=== PATIENT | male | born 1950 | race Caucasian/White ===

== ENCOUNTER 2017-08-26 17:41 | Inpatient (IN) | payer OTHER, BC ==
[2017-08-26] MEDS: ASPIRIN 325 MG TAB PO (18:49)
[2017-08-26 19:53] LABS: ADD MAN DIFF? NO
[2017-08-26 19:54] LABS: WHITE BLOOD COUNT 8.6 10^3/ul (4.8-10.8)
[2017-08-26 19:54] LABS: BASOPHILS % 0.3 % (0.0-2.0); EOSINOPHILS # 0.2 10^3/ul (0.0-0.5); HEMATOCRIT 47.7 % (42.0-52.0); HEMOGLOBIN 16.1 g/dl (14.0-18.0); LYMPHOCYTES # 2.1 10^3/ul (0.8-2.9); LYMPHOCYTES % 24.4 % (15.0-51.0); MEAN CORPUSCULAR HGB CONC 33.8 g/dl (32.0-37.0); MEAN CORPUSCULAR VOLUME 91.7 fl (82.0-101.0); MEAN PLATELET VOLUME 9.4 fl (7.4-10.4); MONOCYTE # 0.8 10^3/ul (0.3-0.9); MONOCYTES % 9.3 % (0.0-11.0); NEUTROPHIL # 5.5 10^3/ul (1.6-7.5); NEUTROPHILS % 63.8 % (39.0-77.0); PLATELET COUNT 215 10^3/UL (140-415); RED CELL DISTRIBUTION WIDTH 12.2 % (11.5-14.5)
[2017-08-26 20:10] LABS: INR 0.96; PARTIAL THROMBOPLASTIN TIME 29.7 Sec (25.0-35.0); PROTIME 12.9 Sec (11.9-14.9)
[2017-08-26 20:15] LABS: ALANINE AMINOTRANSFERASE 55 IU/L (13-69); ALBUMIN 4.2 g/dl (3.3-4.9); ALBUMIN/GLOBULIN RATIO 1.07; ALKALINE PHOSPHATASE 76 IU/L (42-121); ANION GAP 15 (8-16); ASPARTATE AMINO TRANSFERASE 169 IU/L (15-46); BILIRUBIN,INDIRECT 0.6 mg/dl (0-1.1); BILIRUBIN,TOTAL 0.6 mg/dl (0.2-1.3); BLOOD UREA NITROGEN 26 mg/dl (7-20); CALCIUM 8.9 mg/dl (8.4-10.2); CARBON DIOXIDE 28 mmol/L (21-31); CHLORIDE 102 mmol/L (97-110); CREATINE KINASE 1050 IU/L (23-200); CREATININE 1.54 mg/dl (0.61-1.24); GLUCOSE 197 mg/dl (70-220); POTASSIUM 5.2 mmol/L (3.5-5.1); SODIUM 140 mmol/L (135-144); TOTAL PROTEIN 8.1 g/dl (6.1-8.1)
[2017-08-26 20:28] LABS: B-TYPE NATRIURETIC PEPTIDE 4920 PG/ML (0-125); CK INDEX 4.7
[2017-08-26] MEDS: NA POLYST SULFON 15 GM/60 ML BTL PO (21:49)
[2017-08-26] MEDS: CA CHLORIDE 10% 10 ML SYRINGE IV (21:49)
[2017-08-26] MEDS: NA BICARBONATE 8.4% 50 ML SYG IV (21:49)
[2017-08-26] MEDS ORDERED: ONDANSETRON 4 MG INJ IV (23:00)
[2017-08-26] MEDS ORDERED: ACETAMINOPHEN 325 MG TAB PO (23:00)
[2017-08-26] MEDS: ENOXAPARIN 80 MG/0.8 ML SYG SC ×2 (23:10→23:11)
[2017-08-27] MEDS: ATORVASTATIN 80 MG TAB PO (01:30)
[2017-08-27] MEDS ORDERED: NACL 0.9% 3 ML SYG IV (01:30)
[2017-08-27] MEDS ORDERED: MAGNESIUM HYDROXIDE 30ML CUP PO (01:30)
[2017-08-27] MEDS ORDERED: DOCUSATE SODIUM 100 MG CAP PO (01:30)
[2017-08-27] MEDS ORDERED: hydrALAzine 20 MG INJ IV (01:30)
[2017-08-27] MEDS ORDERED: NITROGLYCERIN (SL) 0.4 MG TAB SL (01:30)
[2017-08-27] MEDS ORDERED: morphine 2 MG INJ IV (01:30)
[2017-08-27] MEDS ORDERED: ONDANSETRON 4 MG INJ IV (01:30)
[2017-08-27] MEDS ORDERED: LORAZEPAM 2 MG INJ IV (01:30)
[2017-08-27] MEDS ORDERED: HYDROCODONE/APAP (5/325) TAB PO (01:30)
[2017-08-27] MEDS ORDERED: NA PHOSPHATE/BIPHOS 133 ML ENEMA PR (01:30)
[2017-08-27] MEDS ORDERED: ACETAMINOPHEN 325 MG TAB PO (01:30)
[2017-08-27] MEDS ORDERED: ALBUTEROL/IPRATROPIUM (NEB) 3 ML AMP HHN (01:30)
[2017-08-27] MEDS: SOD CHLORIDE 0.45% 1,000 ML IV (02:37)
[2017-08-27 02:44] LABS: CREATINE KINASE 670 IU/L (23-200)
[2017-08-27 02:48] LABS: INR 1.08; PROTIME 14.1 Sec (11.9-14.9); PT RATIO 1.1
[2017-08-27 02:49] LABS: PARTIAL THROMBOPLASTIN TIME 39.4 Sec (25.0-35.0)
[2017-08-27 02:58] LABS: CK INDEX 4.6
[2017-08-27] MEDS ORDERED: GLUCOSE GEL 15 GRAM TUBE PO ×2 (03:00)
[2017-08-27] MEDS ORDERED: GLUCAGON 1 MG INJ IM (03:00)
[2017-08-27] MEDS ORDERED: GLUCOSE GEL 15 GRAM TUBE BUCCAL (03:00)
[2017-08-27] MEDS ORDERED: DEXTROSE 50% 50 ML SYRINGE IV ×2 (03:00)
[2017-08-27 03:46] LABS: FREE T4 (FREE THYROXINE) 1.06 ng/dl (0.78-2.44)
[2017-08-27] MEDS: INSULIN ASPART [NOVOLOG] 3 ML PEN SC ×3 (05:04→12:47)
[2017-08-27] MEDS ORDERED: ATROPINE 1 MG/10 ML SYRINGE ×2 (07:00→14:24)
[2017-08-27] MEDS ORDERED: NA BICARBONATE 8.4% 50 ML SYG (07:00)
[2017-08-27] MEDS ORDERED: MAGNESIUM SULFATE 1 GM/100 ML D5W IVPB (07:00)
[2017-08-27] MEDS ORDERED: ETOMIDATE 20 MG INJ (07:00)
[2017-08-27] MEDS ORDERED: EPINEPHrine 0.1 MG/ML SYG ×5 (07:00→15:11)
[2017-08-27] MEDS ORDERED: SUCCINYLCHOLINE CHLORIDE 100 MG/5 ML SYG IV (07:00)
[2017-08-27 08:45] LABS: CREATINE KINASE 541 IU/L (23-200)
[2017-08-27 08:57] LABS: CK INDEX 4.1
[2017-08-27] MEDS: HEPARIN 5,000 UNIT/0.5 ML VIAL SC (09:00)
[2017-08-27] MEDS: ASPIRIN (EC) 325 MG TAB PO ×2 (10:00→12:52)
[2017-08-27] MEDS: METOPROLOL 50 MG TAB PO (10:19)
[2017-08-27] MEDS: METOPROLOL 25 MG TAB PO (10:20)
[2017-08-27] MEDS ORDERED: HEPARIN 25000 UNITS/250 ML 250 ML IV ×2 (11:00→14:00)
[2017-08-27 12:15] LABS: ADD MAN DIFF? NO
[2017-08-27 12:22] LABS: BASOPHILS % 0.2 % (0.0-2.0); EOSINOPHILS % 0.5 % (0.0-7.0); HEMATOCRIT 47.6 % (42.0-52.0); HEMOGLOBIN 15.9 g/dl (14.0-18.0); LYMPHOCYTES % 23.9 % (15.0-51.0); MEAN CORPUSCULAR HEMOGLOBIN 30.6 pg (29.0-33.0); MEAN CORPUSCULAR HGB CONC 33.4 g/dl (32.0-37.0); MEAN CORPUSCULAR VOLUME 91.5 fl (82.0-101.0); MEAN PLATELET VOLUME 9.9 fl (7.4-10.4); MONOCYTE # 1.1 10^3/ul (0.3-0.9); MONOCYTES % 13.1 % (0.0-11.0); NEUTROPHIL # 5.3 10^3/ul (1.6-7.5); NEUTROPHILS % 61.9 % (39.0-77.0); PLATELET COUNT 208 10^3/UL (140-415); RED CELL DISTRIBUTION WIDTH 12.3 % (11.5-14.5)
[2017-08-27 12:22] LABS: WHITE BLOOD COUNT 8.5 10^3/ul (4.8-10.8)
[2017-08-27 12:56] LABS: INR 1.05; PROTIME 13.8 Sec (11.9-14.9); PT RATIO 1.1
[2017-08-27 12:57] LABS: PARTIAL THROMBOPLASTIN TIME 37.1 Sec (25.0-35.0)
[2017-08-27] MEDS ORDERED: DEXTROSE 5%-0.45% NACL 1,000 ML IV (14:00)
[2017-08-27] MEDS ORDERED: LEVETIRACETAM 500 MG TAB PO (14:00)
[2017-08-27] MEDS ORDERED: HEPARIN 1000 UNITS/ML 10 ML INJ IV ×2 (14:00)
[2017-08-27] MEDS ORDERED: NITROGLYCERIN 0.2 MG/HR PATCH TRANSDERM (15:00)
[2017-08-27] MEDS ORDERED: TAMSULOSIN (SR) 0.4 MG CAP PO (21:00)
[2017-08-28] MEDS ORDERED: ACCU-CHEK XX (02:00)
== END 2017-08-27 18:30 | disposition expired ==
LOC: TEL 22:55 → E/R 17:41
PROC: 0BH17EZ Insertion of Endotracheal Airway into Trachea, Via Natural or Artificial Opening (ICD-10-PCS; principal; 2017-08-27)
PROC: 5A1935Z Respiratory Ventilation, Less than 24 Consecutive Hours (ICD-10-PCS; 2017-08-27)
PROC: 5A12012 Performance of Cardiac Output, Single, Manual (ICD-10-PCS; 2017-08-27)
DX: I21.4 Non-ST elevation (NSTEMI) myocardial infarction (principal); N17.9 Acute kidney failure, unspecified; I10 Essential (primary) hypertension; E11.9 Type 2 diabetes mellitus without complications; Z95.1 Presence of aortocoronary bypass graft; E87.5 Hyperkalemia; E78.5 Hyperlipidemia, unspecified; I25.10 Atherosclerotic heart disease of native coronary artery without angina pectoris; Z79.4 Long term (current) use of insulin; Z86.718 Personal history of other venous thrombosis and embolism; Z87.820 Personal history of traumatic brain injury
CPT/HCPCS: 31500; 70450; 71045; 80053; 82550; 82553; 82962; 83880; 84439; 84484; 85025; 85610; 85730; 92950; 93005; 93306; 93880; 96372; 99291-25